=== PATIENT | male | born 1955 | race Two or more races ===

== ENCOUNTER 2017-05-11 10:42 | Outpatient (CLI) | payer OTHER | END 2017-05-11 15:00 | disposition home or self-care (01) | LOC: RAD 10:42 | DX: Z00.01 Encounter for general adult medical examination with abnormal findings (principal) ==

== ENCOUNTER → 2018-05-08 | Outpatient (CLI) | payer OTHER | END | disposition home or self-care (01) | LOC: RAD 10:10 | DX: Z00.00 Encounter for general adult medical examination without abnormal findings (principal) ==

== ENCOUNTER 2018-06-04 11:42 | Outpatient (CLI) | payer OTHER | END 2018-06-04 11:51 | disposition home or self-care (01) | LOC: TOM 11:42 | DX: R91.1 Solitary pulmonary nodule (principal) ==

== ENCOUNTER → 2019-08-04 | Outpatient (CLI) | payer OTHER | END | disposition home or self-care (01) | LOC: RAD 08:14 | PROVIDERS: ATTEND Specialist | DX: Z13.9 Encounter for screening, unspecified (principal) ==

== ENCOUNTER → 2020-07-29 | Outpatient (CLI) | payer OTHER | END | disposition home or self-care (01) | LOC: RAD 11:49 | PROVIDERS: ATTEND Specialist | DX: Z02.79 Encounter for issue of other medical certificate (principal) ==

== ENCOUNTER → 2021-09-08 | Outpatient (CLI) | payer OTHER | END | disposition home or self-care (01) | LOC: RAD 14:53 | DX: Z02.79 Encounter for issue of other medical certificate (principal) ==

== ENCOUNTER → 2022-08-09 | Outpatient (CLI) | payer OTHER | END | disposition home or self-care (01) | LOC: RAD 10:41 | PROVIDERS: ATTEND Specialist | DX: Z02.79 Encounter for issue of other medical certificate (principal) ==

== ENCOUNTER 2023-09-04 11:03 | Outpatient (CLI) | payer OTHER | END 2023-09-04 11:52 | disposition home or self-care (01) | LOC: RAD 11:03 | DX: Z02.79 Encounter for issue of other medical certificate (principal) ==

== ENCOUNTER 2024-01-26 07:50 | Outpatient (CLI) | payer OTHER ==
[2024-01-26 08:47] LABS: PH,URINE 6.5 (5.0-8.0); URINE APPEARANCE Clear; URINE BILIRRUBIN Negative (NEGATIVE); URINE BLOOD Negative; URINE COLOR Dark Yellow; URINE GLUCOSE Negative (NEGATIVE); URINE KETONE Negative (NEGATIVE); URINE LEUKOCYTE Small; URINE NITRATE Negative; URINE PROTEIN Trace (NEGATIVE)
[2024-01-26 09:10] LABS: URINE BACTERIA 19.5 uL (0.0-1933); URINE EPITHELIAL CELLS 2.2 uL (0.0-38.8); URINE RBC 8.9 uL (0.0-20.8); URINE WBC 33.4 uL (0.0-23.2)
[2024-01-26 09:15] LABS: URINE CAST 0.44 uL (0.0-1.40)
[2024-01-26 09:27] LABS: ALBUMIN 3.9 gm/dL (3.4-5.0); BILIRUBIN TOTAL 0.83 mg/dL (0.3-1.2); CALCIUM 9.3 mg/dL (8.5-10.1); CREATININE SERUM 0.79 mg/dL (0.70-1.30); GFR 97.25; GLOBULINA 3.1 G/DL (2.4-3.5); POTASSIUM 4.09 mEq/L (3.5-5.1); T4 FREE 0.91 NG/ML (0.76-1.46); TSH 1.07 uIU/mL (0.358-3.74)
[2024-01-26 09:36] LABS: PROSTATIC SPECIFIC ANTIGEN 7.5 NG/ML (0.010-4.00)
[2024-01-26 10:24] LABS: HEMATOCRIT 42.2 % (39.0-48.0); MEAN CELL VOLUME 95.5 fL (80.0-100.00); MEAN CORPUSCULAR HGB CONC 35.6 g/dl (32.0-36.0); PLATELET COUNT 353 K/uL (150-450); RED BLOOD COUNT 4.42 M/uL (4.00-6.00); RED CELL DISTRIBUTION WIDTH 12.9 % (11.5-14.5)
== END 2024-01-26 08:18 | disposition home or self-care (01) ==
LOC: LAB 07:50
DX: I10 Essential (primary) hypertension (principal); Z12.11 Encounter for screening for malignant neoplasm of colon; E66.9 Obesity, unspecified; G89.29 Other chronic pain; Z13.220 Encounter for screening for lipoid disorders; Z13.228 Encounter for screening for other metabolic disorders; Z11.3 Encounter for screening for infections with a predominantly sexual mode of transmission; Z13.89 Encounter for screening for other disorder

== ENCOUNTER 2024-04-16 09:39 | Outpatient (CLI) | payer OTHER | END 2024-04-16 09:41 | disposition home or self-care (01) | LOC: RAD 09:39 | PROVIDERS: ATTEND Urology | DX: R97.20 Elevated prostate specific antigen [PSA] (principal); Z01.818 Encounter for other preprocedural examination ==